=== PATIENT | male | born 1975 | race American Indian/Alaskan Native ===

== ENCOUNTER 2020-08-04 14:26 | Emergency (ER) | payer SELFPAY ==
--- NOTE | 2020-08-04 16:14 | Emergency Department Report ---
Blank Doc - Documentation Documentation: 44-year-old male that presents with left-sided chest pain with shortness of br eath. Pain increased with inspiration. Tachycardia in triage. 1- This initial assessment/diagnostic orders/clinical plan/ treatment(s) is/are subject to change based on pt's health status, clinical progression and re- assessment by fellow clinical providers in the ED. Further treatment and workup at subsequent clinical provers discretion. Patient/guardians urged not to elope from ED as their condition may be serious if not clinically assessed and managed. 2-cardiac work-up
[2020-08-04 16:30] LABS: Basophils % (Auto) 0.6 % (0.0-1.8); Hemoglobin 16.5 gm/dl (11.8-15.2); Lymphocytes # (Auto) 0.8 K/mm3 (1.2-5.4); Lymphocytes % (Auto) 24.9 % (13.4-35.0); Mean Corpuscular HGB Conc 33 % (32-34); Mean Corpuscular Volume 88 fl (84-94); Monocytes # (Auto) 0.3 K/mm3 (0.0-0.8); Monocytes % (Auto) 9.4 % (0.0-7.3); Platelet Count 137 K/mm3 (140-440); Red Blood Count 5.71 M/mm3 (3.65-5.03); Red Cell Distribution Width 13.8 % (13.2-15.2)
[2020-08-04 16:40] LABS: INR 1.05 (0.87-1.13)
[2020-08-04 16:41] LABS: Partial Thromboplastin Time 30.7 Sec. (24.2-36.6)
[2020-08-04 16:47] LABS: Alanine Aminotransferase 63 units/L (7-56); Albumin 4.4 g/dL (3.9-5); Blood Urea Nitrogen 2 mg/dL (9-20); Calcium 9.2 mg/dL (8.4-10.2); Hemolysis Index 15
--- NOTE | 2020-08-04 16:47 | XRay Report ---
CHEST PA AND LATERAL VIEWS INDICATION: Chest Pain. COMPARISON: None FINDINGS: Support devices: None Heart: Normal Lungs/Pleura: No acute pulmonary or pleural findings. IMPRESSION: 1. No significant abnormality. Signer Name: Rasta Gilman MD Signed: 08/04/2020 4:43 PM Workstation Name: [id number]
[2020-08-04 16:48] LABS: BUN/Creatinine Ratio 3
--- NOTE | 2020-08-04 21:22 | Emergency Department Report ---
ED Chest Pain HPI - General Chief Complaint: Chest Pain Stated Complaint: ABD PAIN Time Seen by Provider: 08/04/20 16:06 Source: patient Mode of arrival: Ambulatory Limitations: No Limitations - History of Present Illness Initial Comments: 44-year-old male, history of hypertension, acid reflux, presents to ED with left-sided chest pain. Patient states pain began 10 days ago after he received the first dose of his Moderna COVID-19 vaccine. He reports associated fever and chills. Patient states the fever and chills have since resolved, however the sharp chest pain has been constant. Patient states the pain is pleuritic. He denies any shortness of breath, leg pain or swelling. MD Complaint: chest pain -: days(s) (10) Onset: during rest Pain Location: left chest Pain Radiation: none Severity: mild Severity scale (0 -10): 2 Quality: sharp Consistency: constant Improves With: nothing Worsens With: inspiration re: denies: nausea, vomting, diaphoresis, dyspnea Other Symptoms: fever. denies: cough, leg swelling Treatments Prior to Arrival: none - Related Data Previous Rx's Medication Instructions Recorded Last Taken Type levETIRAcetam [Keppra] 750 mg PO BID #60 tablet 07/16/14 Unknown Rx traMADoL [Ultram] 50 mg PO Q6HR PRN #7 tablet 08/04/20 Unknown Rx Allergies Allergy/AdvReac Type Severity Reaction Status Date / Time ibuprofen AdvReac Unknown Verified 08/04/20 16:04 Heart Score - HEART Score History: Slightly suspicious EKG: Normal Age: 45-65 Risk factors: 1-2 risk factors Troponin: < normal limit HEART Score: 2 - EKG Read Time Time EKG Completed: 16:42 EKG Read Time: 16:46 ED Review of Systems ROS: Stated complaint: ABD PAIN Other details as noted in HPI Comment: All other systems reviewed and negative Constitutional: chills, fever Respiratory: denies: cough, shortness of breath Cardiovascular: chest pain Gastrointestinal: denies: nausea, vomiting Musculoskeletal: other (Denies leg pain or swelling) ED Past Medical Hx - Past Medical History Hx Seizures: Yes - Surgical History Additional Surgical History: brain surgery - Social History Smoking Status: Never Smoker Substance Use Type: None - Medications Home Medications: Home Medications Medication Instructions Recorded Confirmed Last Taken Type levETIRAcetam [Keppra] 750 mg PO BID #60 tablet 07/16/14 Unknown Rx traMADoL [Ultram] 50 mg PO Q6HR PRN #7 tablet 08/04/20 Unknown Rx ED Physical Exam - General Limitations: No Limitations General appearance: alert, in no apparent distress - Head Head exam: Present: atraumatic, normocephalic - Eye Eye exam: Present: normal appearance, EOMI - ENT ENT exam: Present: mucous membranes moist - Neck Neck exam: Present: normal inspection - Respiratory Respiratory exam: Present: normal lung sounds bilaterally. Absent: respiratory distress - Cardiovascular Cardiovascular Exam: Present: regular rate, normal rhythm - GI/Abdominal GI/Abdominal exam: Present: soft. Absent: distended, tenderness - Extremities Exam Extremities exam: Present: normal inspection - Neurological Exam Neurological exam: Present: alert, oriented X3 - Psychiatric Psychiatric exam: Present: normal affect, normal mood - Skin Skin exam: Present: warm, dry, intact, normal color ED Course Vital Signs 08/04/20 08/04/20 08/04/20 16:00 20:55 22:00 Temperature 98.2 F 98.2 F Pulse Rate 115 H 89 88 Respiratory 20 21 21 Rate Blood Pressure 156/107 135/101 Blood Pressure 156/106 [Left] O2 Sat by Pulse 95 100 100 Oximetry 08/04/20 23:00 Temperature Pulse Rate 94 H Respiratory 19 Rate Blood Pressure 134/99 Blood Pressure [Left] O2 Sat by Pulse Oximetry ED Medical Decision Making - Lab Data Result diagrams: 08/04/20 16:09 08/04/20 16:09 - EKG Data -: EKG Interpreted by Pr EKG shows normal: sinus rhythm, intervals, QRS complexes, ST-T waves Rate: normal - EKG Data Interpretation: no acute changes - Radiology Data Radiology results: report reviewed, image reviewed - Medical Decision Making 44-year-old male presents to ED with left pleuritic pain x7 days since this event has been diagnosed vaccine. O2 sats are normal, patient in no respiratory distress. EKG shows no ST changes. Troponin negative x2. CTA was obtained secondary to elevated D-dimer. CTA is negative for any evidence of PE. Patient will be discharged at this time. Outpatient follow-up advised, return precautions given. - Differential Diagnosis Pneumonia, PE, pleurisy, ACS Critical care attestation.: If time is entered above; I have spent that time in minutes in the direct care of this critically ill patient, excluding procedure time. ED Disposition Clinical Impression: Pleuritic chest pain Disposition: TO HOME OR SELFCARE Is pt being admited?: No Condition: Stable Instructions: Nonspecific Chest Pain, Adult, [id number], Pleurisy, [id number] Prescriptions: traMADoL [Ultram] 50 mg PO Q6HR PRN #7 tablet PRN Reason: Pain Referrals: [facility] [Provider Group] - 3-5 Days PRIMARY CARE, [Primary Care Provider] - 3-5 Days Time of Disposition: 23:14
[2020-08-04 21:43] LABS: Bilirubin,Urine NEG (Negative); Blood,Urine NEG (Negative); Color,Urine Yellow (Yellow); Mucus,Urine FEW /HPF; Protein,Urine <15 mg/dL mg/dL (Negative)
[2020-08-04 21:47] LABS: RBC,Urine < 1.0 /HPF (0.0-6.0)
--- NOTE | 2020-08-04 23:03 | Cat Scan Report ---
CTA CHEST WITH IV CONTRAST INDICATION / CLINICAL INFORMATION: chest pain. TECHNIQUE: Axial CT images were obtained through the chest after injection of 100 mL Omnipaque 300 IV contrast. 3 plane MIP and/or 3D reconstructions were produced. All CT scans at this location are performed usin g CT dose reduction for ALARA by means of automated exposure control. COMPARISON: None available. FINDINGS: PULMONARY ARTERIES: No pulmonary emboli. THORACIC AORTA: No significant abnormality. HEART: No significant abnormality. CORONARY ARTERIES: No significant calcification. PLEURA: No pleural effusion. No pneumothorax. LYMPH NODES: No significant adenopathy. LUNGS: No acute air space or interstitial disease. ADDITIONAL FINDINGS: None. UPPER ABDOMEN: No acute findings. Hepatic steatosis. SKELETAL STRUCTURES: No significant osseous abnormality. IMPRESSION: 1. No CT evidence for pulmonary embolism. 2. No acute findings. 3. Hepatic steatosis. Signer Name: Rain Mercado MD Signed: 08/04/2020 10:58 PM Workstation Name: [id number]
[2020-08-04 23:18] VITALS: BP 134/99
--- NOTE | 2020-08-06 12:58 | Electrocardiograph Report ---
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
== END 2020-08-04 23:42 | disposition home or self-care (01) ==
LOC: EDBD → ED 14:26
DX: R07.81 Pleurodynia (principal); K21.9 Gastro-esophageal reflux disease without esophagitis; I10 Essential (primary) hypertension; Z88.6 Allergy status to analgesic agent; Z86.69 Personal history of other diseases of the nervous system and sense organs; Z79.899 Other long term (current) drug therapy; Z98.890 Other specified postprocedural states
CPT/HCPCS: 36415; 71046; 71275; 80053; 81001; 84484; 85025; 85379; 85610; 85730; 93005; 99284; Q9967